=== PATIENT | female | born 1995 | race Caucasian/White ===

== ENCOUNTER 2024-10-19 06:03 | Emergency (ER) | payer OTHER ==
[~2024-10-19] VITALS: Ht 167.6 cm; Wt 104.3 kg
[~2024-10-19 06:03] MED LIST: BIRTH CONTROL; NAPROSYN500 MG PO
[2024-10-19] MEDS ORDERED: BUPROPION HCL100 M1 PO (06:15)
[2024-10-19] MEDS ORDERED: LEVOTHYROXINE125 MCG PO (06:15)
[2024-10-19] MEDS ORDERED: CETIRIZINE HCL10 MG PO (06:16)
[2024-10-19] MEDS ORDERED: MONTELUKAST SOD10 MG PO (06:16)
[2024-10-19 06:24] LABS: BASOPHILS 0.5 % (0-2); EOSINOPHILS 0.9 % (0-6); HEMATOCRIT 43.7 % (35.0-50.0); HEMOGLOBIN 15.1 g/dL (12.0-18.0); LYMPHOCYTES 30.9 % (24-44); MCH 30.9 (27-36); MCHC 34.5 g/dl (30-36); MCV 89.5 fl (81-99); MONOCYTES 6.1 % (0-12); NEUTROPHILS 61.6 % (39-80); PLATELET COUNT 252 K/uL (140-440); RBC 4.89 M/ul (4.3-5.7); RDW 13.4 (10.5-15.0)
[2024-10-19 06:46] LABS: ALBUMIN 3.5 g/dL (3.4-5.0); ALBUMIN/GLOBULIN RATIO 0.95 (1.1-2.4); ANION GAP 14.6 (7-21); BILIRUBIN, TOTAL 0.5 ng/dL (0.2-1.0); BUN/CREATININE RATIO 14.28 (6.0-28.6); CALCIUM 9.1 mg/dL (8.5-10.1); CREATININE, SERUM 0.7 mg/dL (0.55-1.02); POTASSIUM 3.6 mmol/L (3.5-5.1); PROTEIN, TOTAL 7.2 g/dL (6.4-8.2)
[2024-10-19 06:53] LABS: ABO A; RH POSITIVE
[2024-10-19 06:56] LABS: BILIRUBIN, URINE NEGATIVE (negative); BLOOD/HGB, URINE LARGE (Negative); KETONE, URINE NEGATIVE (Negative); LEUK ESTERASE, URINE TRACE (negative); NITRITE, URINE NEGATIVE (negative); PH, URINE 6.5 (5-7)
[2024-10-19 07:02] LABS: CRYSTALS, URINE NONE SEEN (0-1+); EPITHELIAL CELLS, URINE SQUAMOUS 2+ /lpf (0-1+)
[2024-10-19 07:03] LABS: BACTERIA, URINE RARE /hpf (negative); CASTS, URINE NONE SEEN \\lpf; COLLECTION TYPE, URINE CLEAN CATCH; REFLEX CULTURE, URINE No (No)
[2024-10-19 08:00] VITALS: BP 129/82
== END 2024-10-19 08:00 | disposition home or self-care (01) ==
LOC: ED 06:03
PROVIDERS: Family Medicine
DX: O20.8 Other hemorrhage in early pregnancy (principal); Z3A.12 12 weeks gestation of pregnancy; E03.9 Hypothyroidism, unspecified; Z88.5 Allergy status to narcotic agent; Z79.890 Hormone replacement therapy; Z79.899 Other long term (current) drug therapy
CPT/HCPCS: 36415; 76801; 80053; 81001; 84702; 85025; 86900; 86901; 99284-25

== ENCOUNTER 2025-05-05 07:18 | Inpatient (IN) | payer OTHER ==
[~2025-05-05] VITALS: Ht 166.4 cm; Wt 108.4 kg
[~2025-05-05 07:18] MED LIST changes: +BUPROPION HCL100 M1 PO; +CETIRIZINE HCL10 MG PO; +LEVOTHYROXINE125 MCG PO; +MONTELUKAST SOD10 MG PO
[2025-05-05] MEDS ORDERED: LIDOCAINE HCL 1% 30 ML SDV INJ PRN (07:45)
[2025-05-05] MEDS ORDERED: TERBUTALINE SULFATE 1 MG/ML AMP SUB-Q PRN (07:45)
[2025-05-05] MEDS ORDERED: CALCIUM CARBONATE 500 MG CHEW PO PRN (07:45)
[2025-05-05] MEDS ORDERED: MAGNESIUM HYDROXIDE/AL HYDROX 30 ML CUP PO PRN (07:45)
[2025-05-05 08:27] LABS: AMPHETAMINES, URINE NEGATIVE (NEGATIVE); BARBITURATES, URINE NEGATIVE (NEGATIVE); BENZODIAZEPINE, URINE NEGATIVE (NEGATIVE); CANNABINOID, URINE NEGATIVE (NEGATIVE); COCAINE, URINE NEGATIVE (NEGATIVE); ECSTASY, URINE NEGATIVE (NEGATIVE); FENTANYL, URINE NEGATIVE (NEGATIVE); METHADONE, URINE NEGATIVE (NEGATIVE); OPIATES, URINE NEGATIVE (NEGATIVE); OXYCODONE, URINE NEGATIVE (NEGATIVE); PHENCYCLIDINE, URINE NEGATIVE (NEGATIVE)
[2025-05-05 08:34] LABS: MCH 30.4 PG (25.6-32.2); MCHC 33.7 g/dL (32.2-35.5); MCV 90.1 fL (79.4-94.8); RBC 4.67 M/uL (3.93-5.22)
[2025-05-05 08:48] VITALS: BP 129/82
[2025-05-05 09:13] LABS: ABO A; ANTIBODY SCREEN NEGATIVE; RH POSITIVE
[2025-05-05] MEDS ORDERED: LACTATED RINGER'S 1,000 ML IV PRN (12:00)
--- NOTE | 2025-05-05 16:43 | PR ---
[facility] [address] [facility] [place], [place] [address] Signed Progress Notes IP Datetime Report Generated by CPN: 05/05/2025 16:43 PROGRESS NOTES: [id number] Impression: Normal Progression of Labor Procedures: Sterile Vag Exam Other Procedures: Cook catheter insertion Plan: Continue Present Management; Induction VITAL SIGNS: [id number] EXAM: [id number] Dilatation: 2.0 Effacement: 60 Station: -3 Contractions: every 1.5-4min MEMBRANES: [id number] Membranes Status: Intact ROM Note: No fluid noted leaking Comments: Able to successfully place cook catheter, 50cc filled in uterine balloon, 50cc filled in vaginal balloon. FETUS A: [id number] Variability: Moderate 6-25bpm Decelerations: Variable FHR Category: Category II FETUS B: [id number] Signing Physician: Garfield Bates CNM Copies: ~ *Electronically Signed* 05/05/25 8801 GARFIELD BATES CNM PATIENT NAME: JULIAN JAIN PROGRESS NOTE DATE OF : 95 PHYSICIAN: GARFIELD BATES CNM RPT #: [id number] REPORT IS CONFIDENTIAL AND NOT TO BE RELEASED WITHOUT AUTHORIZATION
[2025-05-05] MEDS ORDERED: OXYTOCIN/0.9 % SODIUM CHLORIDE 30 UNITS/500 ML BAG IV SCH (19:30)
[2025-05-05] MEDS ORDERED: ACETAMINOPHEN 500 MG TAB PO PRN (20:00)
[2025-05-05] MEDS ORDERED: ROPIVACAINE 0.2% 200 ML BAG ONE (21:52)
[2025-05-05] MEDS ORDERED: Ropivacaine HCl 20 MG/10 ML AMP ONE (21:53)
[2025-05-05] MEDS ORDERED: LACTATED RINGER'S 500 ML IV PRN (22:00)
[2025-05-05] MEDS ORDERED: ePHEDrine sulfate 5 MG/ML SYRINGE IV PRN (22:00)
[2025-05-05] MEDS ORDERED: LACTATED RINGER'S 2,000 ML IV ONE (22:00)
--- NOTE | 2025-05-06 09:11 | PR ---
[facility] [address] [facility] [place], [place] [address] Signed Progress Notes IP Datetime Report Generated by CPN: 05/06/2025 09:11 PROGRESS NOTES: [id number] Impression: Normal Progression of Labor Procedures: Intrauterine Pressure Catheter; Scalp Electrode Other Procedures: Cook catheter insertion Plan: Augmentation Informed Consent Obtain: Risks, Benefits and Alternatives Discussed VITAL SIGNS: [id number] EXAM: [id number] Dilatation: 2.0 Effacement: 60 Station: -2 Contractions: every 1.5-4min MEMBRANES: [id number] Membranes Status: Intact ROM Note: large amt clear fluid noted with FSE placement, pads changed Comments: Contractions have spaced out, no cervical change. Will start pitocin FETUS A: [id number] Variability: Moderate 6-25bpm Decelerations: None FHR Category: Category II FETUS B: [id number] Signing Physician: Garfield Bates CNM Copies: ~ *Electronically Signed* 05/06/25910 GARFIELD BATES CNM PATIENT NAME: JULIAN JAIN PROGRESS NOTE DATE OF : 95 PHYSICIAN: GARFIELD BATES CNM RPT #: [id number] REPORT IS CONFIDENTIAL AND NOT TO BE RELEASED WITHOUT AUTHORIZATION
[2025-05-06] MEDS ORDERED: OXYTOCIN/0.9 % SODIUM CHLORIDE 500 ML IV SCH (09:15)
[2025-05-06] MEDS ORDERED: ROPIVACAINE 0.2% 200 ML BAG EPIDURAL SCH (16:00)
--- NOTE | 2025-05-06 17:51 | PR ---
[facility] [address] [facility] [place], [place] [address] Signed Progress Notes IP Datetime Report Generated by CPN: 05/06/2025 17:51 PROGRESS NOTES: [id number] Impression: Normal Progression of Labor Procedures: Sterile Vag Exam Other Procedures: Cook catheter insertion Plan: Continue Present Management; Augmentation Informed Consent Obtain: Risks, Benefits and Alternatives Discussed VITAL SIGNS: [id number] EXAM: [id number] Dilatation: 5.0 Effacement: 70 Station: -3 Contractions: q1-4 MEMBRANES: [id number] Membranes Status: Intact ROM Note: large amt clear fluid noted with FSE placement, pads changed Comments: Contraction pattern is more regular. fetus tolerating pitocin at 3. Will recheck in 2 hours FETUS A: [id number] Variability: Moderate 6-25bpm Decelerations: None FHR Category: Category I FETUS B: [id number] Signing Physician: Laura Higgins MD Copies: ~ *Electronically Signed* 05/06/25 175 LAURA HIGGINS MD PATIENT NAME: SUSYJULIAN MYRNA PROGRESS NOTE DATE OF : 95 PHYSICIAN: LAURA HIGGINS MD RPT #: [id number] REPORT IS CONFIDENTIAL AND NOT TO BE RELEASED WITHOUT AUTHORIZATION
[2025-05-07] MEDS ORDERED: CEFAZOLIN SODIUM 2 GM/20 ML SYR IV SCH (01:33)
--- NOTE | 2025-05-07 01:39 | PR ---
[facility] [address] [place], [place] [address] Signed Progress Notes IP Datetime Report Generated by MARJORIE: 05/07/2025 01:39 PROGRESS NOTES: [id number] Impression: Arrest of Dilatation/Descent Other Impressions: intolerance to labor Procedures: Sterile Vag Exam Other Procedures: Cook catheter insertion Plan: Deliver- Section Informed Consent Obtain: Section Delivery; Risks, Benefits and Alternatives Discussed VITAL SIGNS: [id number] EXAM: [id number] Dilatation: 5.0 Effacement: 70 Station: -2 Contractions: q1-4 MEMBRANES: [id number] Membranes Status: Intact ROM Note: mvu 130 Comments: With each attempt to restart pitocin fetus will have repetitive late decelerations. They have stopped with discontinuation of pitocin, but there has continued to be no cervical change. At this time we discussed recommendation for C/S and patient agrees to proceed. Risks of bleeding, infection, injury to surrounding areas, expected recovery, impact on future pregnancies reviewed and patient agrees to proceed. FETUS A: [id number] Variability: Moderate 6-25bpm Decelerations: None FHR Category: Category I FETUS B: [id number] Signing Physician: Laura Higgins MD Copies: ~ *Electronically Signed* 05/07/25 0139 LAURA HIGGINS MD PATIENT NAME: JULIAN JAIN PROGRESS NOTE DATE OF : 95 PHYSICIAN: LAURA HIGGINS MD RPT #: [id number] REPORT IS CONFIDENTIAL AND NOT TO BE RELEASED WITHOUT AUTHORIZATION
[2025-05-07] MEDS ORDERED: SOD+POT BICARB/CITRIC ACID 2 EA TABLET.EFF PO ONE (01:45)
[2025-05-07] MEDS ORDERED: OXYTOCIN 10 UNITS/ML VIAL ONE (01:52)
[2025-05-07] MEDS ORDERED: fentaNYL citrate 100 MCG/2 ML VIAL ONE (01:52)
[2025-05-07] MEDS ORDERED: LIDOCAINE 2% W/ EPI 1:200,000 20 ML SDV ONE (01:52)
[2025-05-07] MEDS ORDERED: MORPHINE SULFATE 1 MG/ML VIAL ONE (01:52)
[2025-05-07] MEDS ORDERED: CEFAZOLIN SODIUM 2 GM/20 ML SYR ONE (02:04)
[2025-05-07] MEDS ORDERED: TRANEXAMIC ACID IN NACL,ISO-OS 0 ML IV ONE (02:05)
[2025-05-07] MEDS ORDERED: LACTATED RINGER'S 1,000 ML IV ONE (02:25)
[2025-05-07] MEDS ORDERED: Ropivacaine HCl 0.5% 30 ML VIAL ONE (02:34)
[2025-05-07] MEDS ORDERED: DEXAMETHASONE SOD PHOS 4 MG/ML VIAL ONE ×2 (02:34)
[2025-05-07] MEDS ORDERED: SODIUM CHLORIDE 0.9% 20 ML IV ONE (02:34)
[2025-05-07] MEDS ORDERED: PROCHLORPERAZINE EDISYLATE 10 MG/2 ML VIAL IV PRN ×2 (02:45→03:15)
[2025-05-07] MEDS ORDERED: METOCLOPRAMIDE HCL 10 MG/2 ML SDV IV PRN ×2 (02:45→03:15)
[2025-05-07] MEDS ORDERED: NALOXONE HCL 0.4 MG SYR IV PRN (02:45)
[2025-05-07] MEDS ORDERED: HYDROmorphone HCL 1 MG/ML SYR IV PRN (02:45)
[2025-05-07] MEDS ORDERED: HYDROCODONE/ACETA 5/325 TAB PO PRN (03:15)
[2025-05-07] MEDS ORDERED: PROMETHAZINE HCL 25 MG SUPP PR PRN (03:15)
[2025-05-07] MEDS ORDERED: OXYCODONE/APAP 5/325 TAB PO PRN (03:15)
[2025-05-07] MEDS ORDERED: OXYTOCIN/0.9 % SODIUM CHLORIDE 500 ML IV SCH (03:15)
[2025-05-07] MEDS ORDERED: PROMETHAZINE HCL 25 MG TAB PO PRN (03:15)
[2025-05-07] MEDS ORDERED: LIDOCAINE 2% VISCOUS 6 ML SYR TOP ONE (03:15)
[2025-05-07] MEDS ORDERED: LACTATED RINGER'S 1,000 ML IV SCH (03:21)
--- NOTE | 2025-05-07 03:32 | NUR ---
05/07/25 0332 Rupinder Joshua 0322-PATIENT ARRIVED TO ROOM 102 FOR RECOVERY. PATIENT AWAKE DENIES PAIN OR NAUSEA. REPORTS "LITTLE NUMBNESS IN HANDS" SR HR 70'S. LR WITH 20 PITOCIN INFUSING TO LEFT ARM CDI. FAMILY AT BEDSIDE. FUNDUS FIRM LIGHT RUBRA DRAINAGE TO MELISSA PAD. 0332-PATIENT AWAKE DENIES PAIN OR NAUSEA. HOLDING BABY TO BREAST RA 97% RR EVEN.
[2025-05-07 03:52] VITALS: BP 102/55
[2025-05-07] MEDS ORDERED: SIMETHICONE 80 MG CHEW PO SCH (07:00)
[2025-05-07] MEDS ORDERED: KETOROLAC TROMETHAMINE 30 MG/ML VIAL IV SCH (08:00)
[2025-05-07] MEDS ORDERED: SENNOSIDES/DOCUSATE 1 EA TAB PO SCH (09:00)
[2025-05-08] MEDS ORDERED: IBUPROFEN 600 MG TAB PO SCH (02:00)
[2025-05-08] MEDS ORDERED: LACTATED RINGER'S 1,000 ML IV SCH (05:00)
[2025-05-08 05:29] LABS: MCH 30.9 PG (25.6-32.2); MCHC 33.7 g/dL (32.2-35.5); MCV 91.5 fL (79.4-94.8); RBC 3.66 M/uL (3.93-5.22)
--- NOTE | 2025-05-08 09:01 | PR ---
[facility] [address] [facility] [place], [place] [address] Signed PP Progress Notes Datetime Report Generated by CPN: 05/08/2025 09:01 SUBJECTIVE: [id number] Pain: Within Normal Limits Nausea/Vomiting: Denies Flatus: Yes Vital Signs: [id number] Vital Signs: Reviewed; Within Normal Limits Cardiovascular: Not Done Respiratory: Not Done Abdomen/Uterus: Normal Lochia: Normal Vulva/Perineum: Normal Breasts: Not Done CVA Tenderness: Not Done Extremities: Normal Incision: Normal Progress: Normal IMPRESSION/PLAN/PROCEDURES: [id number] Impression: Normal Progression Plan: Continue Present Management Procedures: None Progress Notes: No concerns. Ambulating. Beeding and pain are WNL. Will D/C home tomorrow. Signing Physician: Laura Higgins MD Copies: ~ *Electronically Signed* 05/08/25900 LAURA HIGGINS MD PATIENT NAME: JULIAN JAIN PROGRESS NOTE DATE OF : 95 PHYSICIAN: LAURA HIGGINS MD RPT #: [id number] REPORT IS CONFIDENTIAL AND NOT TO BE RELEASED WITHOUT AUTHORIZATION
[2025-05-08] MEDS ORDERED: ACETAMINOPHEN 325 MG TAB PO PRN (20:15)
== END 2025-05-09 11:55 | disposition home or self-care (01) | DRG 787 ==
LOC: EDSTATUS 07:18 → FBC 07:20 → FBCO 08:58 → FBC 05-09 11:55
PROVIDERS: ADMIT Obstetrics & Gynecology; ATTEND Obstetrics & Gynecology
PROC: 3E033VJ Introduction of Other Hormone into Peripheral Vein, Percutaneous Approach (ICD-10-PCS; 2025-05-05)
PROC: 3E0P7VZ Introduction of Hormone into Female Reproductive, Via Natural or Artificial Opening (ICD-10-PCS; 2025-05-05)
PROC: 4A1HXCZ Monitoring of Products of Conception, Cardiac Rate, External Approach (ICD-10-PCS; 2025-05-05)
PROC: 10H073Z Insertion of Monitoring Electrode into Products of Conception, Via Natural or Artificial Opening (ICD-10-PCS; 2025-05-06)
PROC: 4A1H7CZ Monitoring of Products of Conception, Cardiac Rate, Via Natural or Artificial Opening (ICD-10-PCS; 2025-05-06)
PROC: 10D00Z1 Extraction of Products of Conception, Low, Open Approach (ICD-10-PCS; principal; 2025-05-07 02:00)
DX: O48.0 Post-term pregnancy (principal); O63.9 Long labor, unspecified; Z3A.40 40 weeks gestation of pregnancy; Z37.0 Single live birth; O99.344 Other mental disorders complicating childbirth; F41.9 Anxiety disorder, unspecified; F32.A Depression, unspecified; O99.284 Endocrine, nutritional and metabolic diseases complicating childbirth; E03.9 Hypothyroidism, unspecified; O76 Abnormality in fetal heart rate and rhythm complicating labor and delivery; O69.81X0 Labor and delivery complicated by cord around neck, without compression, not applicable or unspecified; O62.1 Secondary uterine inertia; Z79.890 Hormone replacement therapy
CPT/HCPCS: 01961; 36415; 76942; 80307; 85027; 86850; 86900; 86901; A9270; J0690; J1100; J1885; J2274; J2405; J2590; J2795; J3010; J7121